=== PATIENT | male | born 1995 | race Caucasian/White ===

== ENCOUNTER 2018-08-28 15:26 | Emergency (ER) | payer BC ==
[~2018-08-28] VITALS: Ht 172.7 cm; Wt 93.0 kg
[2018-08-28 15:37] VITALS: BP 163/101
[2018-08-28] MEDS ORDERED: IBUPROFEN 200 MG TABLET. PO ONE (15:45)
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
[2018-08-28] MEDS ORDERED: ORPH100T PO (16:40)
[2018-08-28] MEDS ORDERED: IBUP-1007 PO (16:40)
[2018-08-28] MEDS ORDERED: HYDR-2761 PO (16:40)
== END 2018-08-28 16:59 | disposition home or self-care (01) ==
LOC: ER 15:26
DX: S29.012A Strain of muscle and tendon of back wall of thorax, initial encounter (principal); S16.1XXA Strain of muscle, fascia and tendon at neck level, initial encounter; R53.1 Weakness; R51 Headache; V43.52XA Car driver injured in collision with other type car in traffic accident, initial encounter; Y93.89 Activity, other specified; Y92.412 Parkway as the place of occurrence of the external cause; Y99.8 Other external cause status
CPT/HCPCS: 70450; 70486; 72125; 72128; 99284